=== PATIENT | male | born 1950 | race Hispanic/Latino ===

== ENCOUNTER 2021-11-27 06:49 | Day surgery (SDC) | payer MEDICARE ==
[2021-11-26 10:02] LABS: Hematocrit 44.9 % (35.5-45.6); Hemoglobin 14.5 gm/dl (11.8-15.2); Mean Corpuscular HGB Conc 32 % (32-34); Mean Corpuscular Volume 89 fl (84-94); Platelet Count 238 K/mm3 (140-440); Red Blood Count 5.03 M/mm3 (3.65-5.03); Red Cell Distribution Width 14.1 % (13.2-15.2)
[2021-11-26 10:27] LABS: Alanine Aminotransferase 16 units/L (7-56); Albumin 4.3 g/dL (3.9-5); BUN/Creatinine Ratio 16; Blood Urea Nitrogen 11 mg/dL (9-20); Calcium 9.3 mg/dL (8.4-10.2); Hemolysis Index 17
--- NOTE | 2021-11-26 15:25 | Anesthesia Consultation ---
Anesthesia Consult and Med Hx Date of service: 11/27/21 - Airway Anesthetic Teeth Evaluation: Chipped ROM Head & Neck: Adequate Mental/Hyoid Distance: Adequate Mallampati Class: Class II Intubation Access Assessment: Good - Pre-Operative Health Status ASA Pre-Surgery Classification: ASA2 Proposed Anesthetic Plan: General - Pulmonary Hx Smoking: Yes (Former) Hx Respiratory Symptoms: No (+2FS) - Central Nervous System Hx Psychiatric Problems: No - Gastrointestinal Hx Gastroesophageal Reflux Disease: Yes - Endocrine Hx Non-Insulin Dependent Diabetes: Yes (Diet controlled) - Other Systems Hx Cancer: No
[~2021-11-27 06:49] MED LIST: LACTATED RINGERS 1,000 ML IV SCH
[2021-11-27] MEDS ORDERED: ceFAZolin/Water 2 GM/20 ML 2 GM/20 ML SYRINGE IV ONE (07:57)
[2021-11-27] MEDS ORDERED: MIDAZOLAM 2 MG/2 ML INJ IV NR (08:20)
[2021-11-27] MEDS ORDERED: HYDROmorphone 1 MG/1 ML INJ IV PRN ×2 (08:21)
--- NOTE | 2021-11-27 08:21 | Anesthesia Day of Surgery ---
Anesthesia Day of Surgery - Day of Surgery Patient Examined: Yes Patient H&P Reviewed: Yes Patient is NPO: Yes
[2021-11-27] MEDS ORDERED: ONDANSETRON 4 MG/2 ML INJ IV PRN (08:30)
[2021-11-27] MEDS ORDERED: ceFAZolin/STERILE WATER 2 GM/20 ML SYRINGE IV NR (08:30)
[2021-11-27] MEDS ORDERED: MIDAZOLAM 2 MG/2 ML INJ ONE (08:34)
[2021-11-27] MEDS ORDERED: LIDOCAINE MPF (2%) 20 MG/1 ML VIAL 5 ML ONE (09:11)
[2021-11-27] MEDS ORDERED: propofoL 200 MG/20 ML VIAL IV ONE (09:11)
[2021-11-27] MEDS ORDERED: dexAMETHasone 20 MG/5 ML VIAL ONE (09:54)
[2021-11-27] MEDS ORDERED: ONDANSETRON 4 MG/2 ML INJ ONE (09:54)
[2021-11-27] MEDS ORDERED: fentaNYL 100 MCG/2 ML INJ ONE (09:54)
[2021-11-27] MEDS ORDERED: SODIUM CHLORIDE 0.9% IRRIG SOLN 2000 ML IR ONE (10:30)
[2021-11-27 12:55] VITALS: BP 122/71
--- NOTE | 2021-11-27 14:41 | Fluoroscopy Report ---
CYSTOGRAM STATIC INDICATION: MEDIAL STRICTURE. COMPARISON: None. IMPRESSION: 4 seconds of fluoroscopy time was provided by radiology during cystogram by urology. 2 fluoroscopic images are presented demonstrating contrast in the bladder as well as a post void film. Mild diverticulosis of the bladder is suggested. No obvious mass. Please correlate with the procedura l report by urology. Signer Name: Rom Dolan Jr, MD Signed: 11/27/2021 2:37 PM Workstation Name: [id number]
--- NOTE | 2021-11-27 16:50 | Post Anesthesia Evaluation ---
- Post Anesthesia Evaluation Patient Participated: Yes Airway Patent: Yes Stable Respiratory Function: Yes Nausea/Vomiting: No Temp > 96.8F: Yes Pain Manageable: Yes Adequeate Hydration: Yes Anesthesia Complications: No Block Receding Appropriately: Not Applicable Patient on Ventilator: No
--- NOTE | 2021-11-28 01:35 | Operative Report ---
DATE OF SURGERY: 11/27/2021 PREOPERATIVE DIAGNOSES: 1. Refractory lower urinary tract symptoms, on maximal medical therapy. 2. Benign prostatic hypertrophy, on ____. 3. Urethral meatal stricture. POSTOPERATIVE DIAGNOSES: 1. Refractory lower urinary tract symptoms, on maximal medical therapy. 2. Benign prostatic hypertrophy, on ____. 3. Urethral meatal stricture. PROCEDURES: Cystoscopy, Gary catheter placement, cystogram. ATTENDING: Mohamud Rivera MD SEPTIC TANK SETTER: None. ANESTHESIA: General. ESTIMATED BLOOD LOSS: 10 mL. DRAINS: A 20-[place] tip catheter. COMPLICATIONS: Urethral meatal narrowing that made it difficult to insert the resectoscope resulting in a urethral false passage necessitating stopping plan case for today. SPECIMENS: None. INDICATIONS FOR PROCEDURE: The patient is a 71-year-old man who has significant LUTS with BPH. He presents today for TURP/TUVP. The procedure was aborted due to difficulty inserting the resectoscope. It resulted in a distal urethral false passage. Out of the abundance of caution, the plan case was canceled and a catheter was placed to allow for healing of the urethra with plans to have the patient come back within a week to have the planned outlet reduction procedure. DESCRIPTION OF PROCEDURE IN DETAIL: After induction of suitable anesthesia and proper positioning and preparation in the dorsal lithotomy position, a cystoscopy was performed. The patient had a very large prostate with a significant median lobe. The cystoscope was removed and the resectoscope was attempted to be placed. It was very difficult to insert the resectoscope at the distal urethral meatus. In attempting to insert the resectoscope, a false passage was created at the distal urethral meatus. The resectoscope was then removed and the cystoscope was replaced and the false passage was examined. In evaluating the false passage and the size of the resection, I felt the safest thing to do was to not proceed with the planned procedure and place a catheter to allow for the urethra to heal. I was concerned that we would have difficulty placing the necessary Gary catheter at the end due to the false passage. Furthermore, I was worried that there would be issues with being able to maneuver the scope due to what happened. As such, once that decision was taken, a wire was placed through the cystoscope into the bladder and a [place] tip catheter was placed over the wire into the bladder. A cystogram was then performed that confirmed that the catheter was in the correct location. Incidentally, the patient did have a reflux into the left ureter, likely from longstanding outlet obstruction. The patient was then awakened from anesthesia and transported to the recovery room in stable condition. He tolerated the procedure well. As long as the patient is agreeable, we will plan on having the patient return in 1 week for the planned TURP/TUVP. TID: [id number] RECEIPT: [id number] OMID/SAVANNAH/KATHY
== END 2021-11-27 12:10 | disposition home or self-care (01) ==
LOC: OR 06:49
PROVIDERS: ATTEND Urology
DX: N40.1 Benign prostatic hyperplasia with lower urinary tract symptoms (principal); N35.919 Unspecified urethral stricture, male, unspecified site; Z20.822 Contact with and (suspected) exposure to COVID-19; K21.9 Gastro-esophageal reflux disease without esophagitis; E11.9 Type 2 diabetes mellitus without complications; Z87.891 Personal history of nicotine dependence; Z79.899 Other long term (current) drug therapy; Z98.890 Other specified postprocedural states
CPT/HCPCS: 36415; 51600; 52000; 74430; 80053; 82962; 85027; 86850; 86900; 86901; J0690; J1100; J2250; J2405; J2704; J3010; J3490; J7120; Q9967; U0003

== ENCOUNTER 2021-12-11 05:59 | Day surgery (SDC) | payer MEDICARE ==
[2021-12-11] MEDS ORDERED: LACTATED RINGERS 1,000 ML ONE ×2 (06:03→09:30)
[2021-12-11] MEDS ORDERED: LIDOCAINE MPF (2%) 20 MG/1 ML VIAL 5 ML ONE (07:23)
[2021-12-11] MEDS ORDERED: propofoL 200 MG/20 ML VIAL IV ONE ×2 (07:23→08:18)
--- NOTE | 2021-12-11 07:24 | Anesthesia Consultation ---
Anesthesia Consult and Med Hx Date of service: 12/11/21 - Airway Anesthetic Teeth Evaluation: Poor (multiple missing teeth) ROM Head & Neck: Adequate Mental/Hyoid Distance: Adequate Mallampati Class: Class II Intubation Access Assessment: Probably Good - Pre-Operative Health Status ASA Pre-Surgery Classification: ASA2 Proposed Anesthetic Plan: General - Pulmonary Hx Smoking: Yes (STOPPED 1990) Hx Respiratory Symptoms: No (+2FS) Hx Sleep Apnea: No (FREYA PRE SCREEN LOW RISK) - Cardiovascular System Hx Hypertension: No - Central Nervous System Hx Psychiatric Problems: No - Gastrointestinal Hx Gastroesophageal Reflux Disease: Yes - Endocrine Hx Renal Disease: No (BPH) Hx Non-Insulin Dependent Diabetes: Yes (Diet controlled) - Hematic Hx Anemia: Yes (NOT RECENT) - Other Systems Hx Cancer: No
--- NOTE | 2021-12-11 07:24 | Anesthesia Day of Surgery ---
Anesthesia Day of Surgery - Day of Surgery Patient Examined: Yes Patient H&P Reviewed: Yes Patient is NPO: Yes
[2021-12-11] MEDS ORDERED: LACTATED RINGERS 1,000 ML IV SCH (07:30)
[2021-12-11] MEDS ORDERED: ceFAZolin/Water 2 GM/20 ML 2 GM/20 ML SYRINGE IV NR (07:40)
[2021-12-11] MEDS ORDERED: ceFAZolin/Water 2 GM/20 ML 2 GM/20 ML SYRINGE IV ONE (07:47)
[2021-12-11] MEDS ORDERED: FAMOTIDINE 20 MG/2 ML INJ IV NR (08:00)
[2021-12-11] MEDS ORDERED: MIDAZOLAM 2 MG/2 ML INJ IV NR (08:00)
[2021-12-11] MEDS ORDERED: KETOROLAC 30 MG/1 ML INJ ONE (08:13)
[2021-12-11] MEDS ORDERED: ONDANSETRON 4 MG/2 ML INJ ONE (08:13)
[2021-12-11] MEDS ORDERED: dexAMETHasone 20 MG/5 ML VIAL ONE (08:13)
[2021-12-11] MEDS ORDERED: fentaNYL 100 MCG/2 ML INJ ONE (08:19)
[2021-12-11] MEDS ORDERED: WATER FOR IRRIG STERILE 1,500 ML BOTTLE IR ONE (08:32)
[2021-12-11] MEDS ORDERED: SODIUM CHLORIDE 0.9% IRRIG SOLN 2000 ML IR ONE ×2 (08:32)
[2021-12-11] MEDS ORDERED: HYDROmorphone 1 MG/1 ML INJ ONE (10:10)
[2021-12-11] MEDS: HYDROmorphone 1 MG/1 ML INJ IV PRN ×2 (10:12→10:47)
[2021-12-11] MEDS ORDERED: OXYBUTYNIN 5 MG TAB PO SCH ×2 (11:00→22:00)
--- NOTE | 2021-12-11 13:19 | Operative Report ---
DATE OF SURGERY: 12/11/2021 PREOPERATIVE DIAGNOSES: Benign prostatic hypertrophy with lower urinary tract symptoms refractory to maximum medical therapy. POSTOPERATIVE DIAGNOSES: Benign prostatic hypertrophy with lower urinary tract symptoms refractory to maximum medical therapy. PROCEDURES: TURP/____. ATTENDING: Mohamud Rivera MD DIESEL ENGINE ERECTOR: None. ANESTHESIA: General. ESTIMATED BLOOD LOSS: 25 mL. DRAINS: A 24-[place] 3-way Gary catheter. SPECIMENS: TUR chips. COMPLICATIONS: None. INDICATIONS FOR PROCEDURE: The patient is a 71-year-old man with refractory lower urinary tract symptoms secondary to an enlarged prostate. He presents today for outlet reduction. He has tried maximal medical therapy without success. DESCRIPTION OF PROCEDURE: After the induction of suitable anesthesia and proper positioning and preparation in the dorsal lithotomy position, the patient's urethral meatus was dilated to 28-[place]. A resectoscope was then used to enter the bladder under direct visualization. The patient had a huge prostate. Most of the enlargement and obstruction was centered on the median lobe. The ureteral orifices were identified. Once identified, the button electrode was used to make cuts in the bladder neck at 5 and 7 o'clock. These incisions were carried down to the circular fibers of the bladder neck. This then outlined the excess of median lobe tissue. The median lobe tissue was then taken down with a combination of the button electrode and loop electrocautery. The median lobe was taken down to the level of the bladder neck, so that the patient's outlet was opened. We were very diligent in the resection and vaporization due to the size of the prostate. Hemostasis was maintained throughout. Once we had a good reduction, all the prostate chips were removed with either gravity drainage or with an Ellik evacuator. After completion of resection and vaporization, electrocautery was used to ensure hemostasis, which was excellent. Once the resection was complete, hemostasis was confirmed, the resectoscope was removed and a Gary catheter was placed. All the chips had been removed. The patient was placed on a slow CBI on which he will stay in the recovery room. He will then be discharged home with Gary catheter in place. The patient was then awakened from anesthesia and transferred to the recovery room in stable condition. He tolerated the procedure well. He will come to the office in 5 days for catheter removal. TID: [id number] RECEIPT: [id number] OMID/CADEN/PARESH
[2021-12-11 17:48] VITALS: BP 122/74
== END 2021-12-11 12:05 | disposition home or self-care (01) ==
LOC: OR 05:59
PROVIDERS: ATTEND Urology
DX: N40.1 Benign prostatic hyperplasia with lower urinary tract symptoms (principal); E78.00 Pure hypercholesterolemia, unspecified; K21.9 Gastro-esophageal reflux disease without esophagitis; E11.36 Type 2 diabetes mellitus with diabetic cataract; D64.9 Anemia, unspecified; N41.8 Other inflammatory diseases of prostate; Z79.84 Long term (current) use of oral hypoglycemic drugs; Z87.891 Personal history of nicotine dependence; Z79.899 Other long term (current) drug therapy; Z98.49 Cataract extraction status, unspecified eye; Z90.49 Acquired absence of other specified parts of digestive tract; Z98.890 Other specified postprocedural states
CPT/HCPCS: 52601; 82962; 86850; 86900; 86901; 88305; J0690; J1100; J1170; J1885; J2250; J2405; J2704; J3010; J3490; J7120